=== PATIENT | male | born 1990 | race Asian ===

== ENCOUNTER 2019-03-14 07:30 | Emergency (ER) | payer MEDICAID ==
[~2019-03-14] VITALS: Ht 172.7 cm; Wt 75.9 kg
[2019-03-14 08:25] LABS: GLUCOSE,POINT OF CARE 262 MG/DL (70-110)
[2019-03-14] MEDS ORDERED: LORazepam 2 MG/ML VIAL IVP ONE (09:00)
[2019-03-14] MEDS ORDERED: GADOBUTROL 1 MMOL/ML 10 ML VIAL IVP ONE (09:05)
[2019-03-14 09:08] LABS: BASOPHILS % (AUTO) 0.9 % (0.0-2.0); EOSINOPHILS % (AUTO) 0.5 % (1.0-6.0); HEMATOCRIT 45.4 % (41-53); HEMOGLOBIN 14.6 g/dL (13.5-17.5); LYMPHOCYTES # (AUTO) 1.8 K/uL (1.0-4.8); LYMPHOCYTES % (AUTO) 20.3 % (22.0-44.0); MEAN CORPUSCULAR HGB CONC 32.2 G/dL (31.0-37.0); MEAN CORPUSCULAR VOLUME 75 fL (80-100); MONOCYTES # (AUTO) 0.7 K/uL (0.1-1.0); MONOCYTES % (AUTO) 8.2 % (2.0-9.0); NEUTROPHILS # (AUTO) 6.4 K/uL (1.8-7.7); NEUTROPHILS % (AUTO) 70.1 % (40.0-70.0); PLATELET COUNT (AUTO) 181 K/uL (150-450); RED BLOOD CELL COUNT(AUTO) 6.08 MIL/uL (4.50-5.90); RED CELL DISTRIBUTION WIDTH 14.9 % (11.5-14.5)
[2019-03-14 09:16] LABS: ANION GAP 14 mmol/L (8-16); CALCIUM, TOTAL 9.2 mg/dL (8.8-10.5); CARBON DIOXIDE 26 mmol/L (22-29); CHLORIDE 95 mmol/L (98-107); CREATININE 0.83 mg/dL (0.60-1.30); GLOMERULAR FILTR. RATE CALC > 60 mL/min (>60); GLUCOSE,RANDOM 266 mg/dL (70-110); POTASSIUM 3.3 mmol/L (3.5-5.1); SODIUM SERUM 135 mmol/L (136-145); UREA NITROGEN, BLOOD 3 mg/dL (7-18)
[2019-03-14 09:22] LABS: ALANINE AMINOTRANSFERASE 378 U/L (12-78); ALBUMIN 4.1 g/dL (3.4-5.0); ALKALINE PHOSPHATASE 140 U/L (46-116); ASPARTATE AMINOTRANSFERASE 237 U/L (15-37); TOTAL PROTEIN, SERUM 9.5 g/dL (6.4-8.2)
[2019-03-14 09:45] LABS: INFLUENZA TYPE A NEGATIVE FOR TYPE A (NEGATIVE); INFLUENZA TYPE B NEGATIVE FOR TYPE B (NEGATIVE)
[2019-03-14 10:09] LABS: ERYTHROCYTE SEDIMENTATION RATE 30 MM/HR (0-15)
[2019-03-14] MEDS ORDERED: THIAMINE HCL 100 MG TABLET PO ONE (12:30)
[2019-03-14] MEDS ORDERED: FOLIC ACID 1 MG TABLET PO ONE (12:30)
[2019-03-14 12:33] VITALS: BP 138/101
== END 2019-03-14 13:15 | disposition home or self-care (01) ==
LOC: EMS 07:33
DX: F10.239 Alcohol dependence with withdrawal, unspecified (principal); R53.1 Weakness; R53.83 Other fatigue; Y90.0 Blood alcohol level of less than 20 mg/100 ml
CPT/HCPCS: 36415; 72158; 80053; 82962; 85025; 85651; 86140; 87804; 96374; 99284; A9585; G0480; J2060